=== PATIENT | male | born 1995 ===

== ENCOUNTER 2018-01-04 08:05 | Emergency (ER) | payer SELFPAY | END 2018-01-04 08:56 | disposition left against medical advice (07) | LOC: ED 08:05 | DX: M79.602 Pain in left arm (principal); Z53.21 Procedure and treatment not carried out due to patient leaving prior to being seen by health care provider ==

== ENCOUNTER 2020-08-15 09:48 | Emergency (ER) | payer SELFPAY ==
[2020-08-15 09:56] VITALS: BP 115/68
[2020-08-15 10:22] LABS: Amorphous Crystals,Urine Few; Bilirubin,Urine NEG (Negative); Blood,Urine NEG (Negative); Color,Urine Yellow (Yellow); Mucus,Urine FEW /HPF; Protein,Urine <15 mg/dL mg/dL (Negative); Urobilinogen,Urine < 2.0 mg/dL (<2.0)
[2020-08-15] MEDS ORDERED: LIDOCAINE-MPF (1%) 10 MG/1 ML VIAL 5 ML INFILTRATI ONE (10:51)
--- NOTE | 2020-08-15 11:42 | Emergency Department Report ---
ED General Adult HPI - General Chief complaint: Abdominal Pain Stated complaint: ABD PAIN, BACK PAIN Time Seen by Provider: 08/15/20 10:24 Source: patient Mode of arrival: Ambulatory Limitations: No Limitations - History of Present Illness Initial comments: Patient is a 25-year-old male presents emergency room with complaints of "bladder pain" for 2 weeks. He states that he has had suprapubic abdominal pain and lower back pain over the last 2 weeks. He states he does have associated dysuria. He denies any urinary frequency, urgency, dark urine, urinary retention, hematuria. He denies any penile discharge, pain or swelling in the testicles, nausea, vomiting, diarrhea, fever. No past medical history. No allergies to medications. He states that he is sexually active without protection. - Related Data Previous Rx's Medication Instructions Recorded Last Taken Type Doxycycline Hyclate [Doxycycline 100 mg PO BID 10 Days #20 tab 08/15/20 Unknown Rx Hyclate TAB] Allergies Allergy/AdvReac Type Severity Reaction Status Date / Time iodine Allergy Swelling Verified 08/15/20 09:51 ED Review of Systems ROS: Stated complaint: ABD PAIN, BACK PAIN Other details as noted in HPI Comment: All other systems reviewed and negative ED Past Medical Hx - Past Medical History Previous Medical History?: No - Surgical History Past Surgical History?: No - Social History Smoking Status: Current Every Day Smoker Substance Use Type: None - Medications Home Medications: Home Medications Medication Instructions Recorded Confirmed Last Taken Type Doxycycline Hyclate [Doxycycline 100 mg PO BID 10 Days #20 tab 08/15/20 Unknown Rx Hyclate TAB] ED Physical Exam - General Limitations: No Limitations General appearance: alert, in no apparent distress - Head Head exam: Present: atraumatic, normocephalic - Eye Eye exam: Present: normal appearance - ENT ENT exam: Present: mucous membranes moist - Respiratory Respiratory exam: Present: normal lung sounds bilaterally. Absent: respiratory distress, wheezes, rales, rhonchi, stridor, chest wall tenderness, accessory muscle use, decreased breath sounds, prolonged expiratory - Cardiovascular Cardiovascular Exam: Present: regular rate, normal rhythm, normal heart sounds. Absent: systolic murmur, diastolic murmur, rubs, gallop - GI/Abdominal GI/Abdominal exam: Present: soft, normal bowel sounds. 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, no scrotal edema, no ttp of the testicles bilaterally, no epididymal tenderness palpation or edema, normal cremasteric reflex, normal testicular lie, no inguinal LAD) - Back Exam Back exam: Absent: CVA tenderness (R), CVA tenderness (L) - Neurological Exam Neurological exam: Present: alert, oriented X3 - Psychiatric Psychiatric exam: Present: normal affect, normal mood - Skin Skin exam: Present: warm, dry, intact ED Course Vital Signs 08/15/20 08/15/20 09:53 11:58 Temperature 97.4 F L Pulse Rate 68 Respiratory 18 18 Rate Blood Pressure 115/68 O2 Sat by Pulse 100 Oximetry ED Medical Decision Making - Lab Data Lab Results 08/15/20 Range/Units Unknown Urine Color Yellow (Yellow) Urine Turbidity Hazy (Clear) Urine pH 9.0 H (5.0-7.0) Ur Specific Brewer 1.020 (1.003-1.030) Urine Protein <15 mg/dl (Negative) mg/dL Urine Glucose (UA) Neg (Negative) mg/dL Urine Ketones Neg (Negative) mg/dL Urine Blood Neg (Negative) Urine Nitrite Neg (Negative) Urine Bilirubin Neg (Negative) Urine Urobilinogen < 2.0 (<2.0) mg/dL Ur Leukocyte Esterase Neg (Negative) Urine WBC (Auto) 2.0 (0.0-6.0) /HPF Urine RBC (Auto) 3.0 (0.0-6.0) /HPF Amorphous Crystals Few Urine Mucus Few /HPF - Medical Decision Making Patient is a 25-year-old male presents emergency room with complaints of "bladder pain" for 2 weeks. He states that he has had suprapubic abdominal pain and lower back pain over the last 2 weeks. He states he does have associated dysuria. He denies any urinary frequency, urgency, dark urine, urinary retention, hematuria. He denies any penile discharge, pain or swelling in the testicles, nausea, vomiting, diarrhea, fever. No past medical history. No allergies to medications. He states that he is sexually active without protection. Vitals are normal. 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 UA is within normal limits. Given that patient is having dysuria and suprapubic abdominal pain, G/C sent. Offered patient prophylactic treatment he states that he would like treatment. Patient given ceftriaxone IM while in the ED. Patient given prescription for doxycycline. Advised patient Please take medication as prescribed. May take Tylenol or ibuprofen as needed for discomfort. Follow-up with the clinic or the health department. Please follow-up with the clinical department to have a full STD panel. Please have any partner tested and treated as well. Avoid sexual intercourse. Return to emergency room for any new or worsening symptoms. Critical care attestation.: If time is entered above; I have spent that time in minutes in the direct care of this critically ill patient, excluding procedure time. ED Disposition Clinical Impression: Suprapubic abdominal pain, Dysuria, Concern about STD in male without diagnosis Low back pain Qualifiers: Chronicity: acute Back pain laterality: unspecified Sciatica presence: without sciatica Qualified Code(s): M54.5 - Low back pain Disposition: DC- TO HOME OR SELFCARE Is pt being admited?: No Does the pt Need Aspirin: No Condition: Stable Instructions: Dysuria, Safe Sex Additional Instructions: Please take medication as prescribed. May take Tylenol or ibuprofen as needed for discomfort. Follow-up with the clinic or the health department. Please follow-up with the clinical department to have a full STD panel. Please have any partner tested and treated as well. Avoid sexual intercourse. Return to emergency room for any new or worsening symptoms. Prescriptions: Doxycycline Hyclate [Doxycycline Hyclate TAB] 100 mg PO BID 10 Days #20 tab Referrals: PRIMARY CAREMD [Primary Care Provider] - 2-3 Days [facility] [Outside] - 2-3 Days [facility] [Provider Group] - 2-3 Days Time of Disposition: 11:41 Print Language: GRENADIAN
== END 2020-08-15 11:59 | disposition home or self-care (01) ==
LOC: ED 09:48
DX: M54.5 Low back pain (principal); R10.2 Pelvic and perineal pain; R30.0 Dysuria; F17.200 Nicotine dependence, unspecified, uncomplicated; Z71.1 Person with feared health complaint in whom no diagnosis is made; Z91.041 Radiographic dye allergy status; Z79.899 Other long term (current) drug therapy
CPT/HCPCS: 81001; 87591; 96372; 99283; J0696